=== PATIENT | female | born 1980 | race Caucasian/White ===

== ENCOUNTER 2017-05-26 13:37 | Emergency (ER) | payer MEDICARE ==
[~2017-05-26] VITALS: Ht 170.1 cm; Wt 83.9 kg
[2017-05-26] MEDS ORDERED: ZOHYDRO ER10 M1 PO (13:55)
[2017-05-26] MEDS ORDERED: CLINDAMYCIN150 MG PO (14:08)
[2017-05-26] MEDS ORDERED: ZOFRAN4 MG PO (14:08)
== END 2017-05-26 15:06 | disposition home or self-care (01) ==
LOC: ED 13:37
DX: S01.531A Puncture wound without foreign body of lip, initial encounter (principal); S60.011A Contusion of right thumb without damage to nail, initial encounter; R03.0 Elevated blood-pressure reading, without diagnosis of hypertension; Z88.2 Allergy status to sulfonamides; Z88.6 Allergy status to analgesic agent; Z88.1 Allergy status to other antibiotic agents; Z98.890 Other specified postprocedural states; Y04.0XXA Assault by unarmed brawl or fight, initial encounter; Y93.89 Activity, other specified; Y92.89 Other specified places as the place of occurrence of the external cause; Y99.9 Unspecified external cause status

== ENCOUNTER 2017-07-27 14:51 | Emergency (ER) | payer MEDICARE, MEDICAID ==
[~2017-07-27] VITALS: Wt 72.6 kg
[~2017-07-27 14:51] MED LIST: BRIN10TA PO; CLINDAMYCIN150 MG PO; LATU40TA2 PO; TRAZODONE150 MG PO; VICO10300 PO; VRAYLAR1.5 MG PO; ZOFRAN4 MG PO; ZOHYDRO ER10 M1 PO
[2017-07-27] MEDS ORDERED: ABILIFY30 MG PO (15:09)
== END 2017-07-27 15:22 | disposition home or self-care (01) ==
LOC: ED 14:51
DX: S30.860A Insect bite (nonvenomous) of lower back and pelvis, initial encounter (principal); F14.10 Cocaine abuse, uncomplicated; E66.9 Obesity, unspecified; Z68.30 Body mass index [BMI] 30.0-30.9, adult; E83.41 Hypermagnesemia; Z90.710 Acquired absence of both cervix and uterus; Z88.2 Allergy status to sulfonamides; Z88.1 Allergy status to other antibiotic agents; Z88.6 Allergy status to analgesic agent; W57.XXXA Bitten or stung by nonvenomous insect and other nonvenomous arthropods, initial encounter; Y93.89 Activity, other specified; Y92.89 Other specified places as the place of occurrence of the external cause; Y99.8 Other external cause status

== ENCOUNTER 2020-12-15 00:33 | Emergency (ER) | payer OTHER ==
[~2020-12-15] VITALS: Ht 170.1 cm; Wt 89.4 kg
[~2020-12-15 00:33] MED LIST changes: +ABILIFY30 MG PO
[2020-12-15 03:21] LABS: BASO % 0.5 % (0.0-1.0); EOS % 0.5 % (1.0-4.0); HEMATOCRIT 41.6 % (37.0-47.0); LYMPH # 1.3 10*3/uL (1.3-4.4); LYMPH % 22.2 % (27.0-41.0); MEAN CELL VOLUME 88.3 fl (81.0-99.0); MEAN CORPUSCULAR HGB 29.7 pg (27.0-31.0); MEAN CORPUSCULAR HGB CONC 33.7 g/dl (33.0-37.0); MEAN PLATELET VOLUME 10.9 fl (9.6-12.3); MONO # 0.4 10*3/uL (0.1-1.0); MONO % 6.6 % (3.0-9.0); NEUT # 4.2 10*3/uL (2.3-7.9); PLATELET COUNT AUTOMATED 245 10*3/uL (130-400); RED BLOOD COUNT 4.71 10*6/uL (4.10-5.10); RED CELL DISTRI WIDTH 11.9 % (0-14.5); WHITE BLOOD COUNT 5.9 10*3/uL (4.8-10.8)
[2020-12-15 03:33] LABS: ACT PARTIAL THROMBO TIME 25.1 SECONDS (20.0-32.1)
[2020-12-15 03:37] LABS: ALBUMIN 3.7 gm/dl (3.1-4.5); ALKALINE PHOSPHATASE 58 U/L (45-117); BUN 7 mg/dl (7-24); CHLORIDE 112 mmol/L (98-107); CREATININE 0.77 mg/dL (0.55-1.02); POTASSIUM 3.9 mmol/L (3.5-5.1); SGOT/AST 13 IU/L (3-35); SGPT/ALT 22 U/L (12-78); SODIUM 143 mmol/L (136-145)
== END 2020-12-15 04:58 | disposition short-term general hospital (02) ==
LOC: ED 00:33
PROVIDERS: Emergency Medicine
DX: M25.512 Pain in left shoulder (principal); M54.9 Dorsalgia, unspecified; R10.9 Unspecified abdominal pain; R53.1 Weakness; Z88.2 Allergy status to sulfonamides; Z88.1 Allergy status to other antibiotic agents; Z88.6 Allergy status to analgesic agent; V89.2XXA Person injured in unspecified motor-vehicle accident, traffic, initial encounter; Y93.89 Activity, other specified; Y92.89 Other specified places as the place of occurrence of the external cause; Y99.8 Other external cause status